=== PATIENT | male | born 1950 | race Asian ===

== ENCOUNTER 2019-02-09 16:18 | Emergency (ER) | payer MEDICARE, MEDICAID ==
[~2019-02-09] VITALS: Ht 172.7 cm; Wt 63.5 kg
[2019-02-09 16:53] LABS: Basophils # (auto) 0 uL; Eosinophils # (auto) 0.1 uL; Eosinophils % (auto) 1.7 % (0.0-7.0)
[2019-02-09 16:55] LABS: Basophils % (auto) 0.7 % (0.0-2.0); Hematocrit 45.3 % (41.0-53.0); Hemoglobin 15.4 g/dL (13.5-17.5); Lymphocytes # (auto) 1.6 uL; Lymphocytes % (auto) 30.5 % (10.0-50.0); Mean Corpuscular Volume 100.1 fL (80.0-100.0); Monocytes # (auto) 0.5 uL; Neutrophils % (auto) 58.1 % (37.0-80.0); Platelet Count (auto) 159 10^3/uL (140-450); Red Blood Cells 4.52 10^6/uL (4.5-5.90); White Blood Cell 5.1 10^3/uL (4.4-10.8)
[2019-02-09 17:09] LABS: BUN/Creatinine Ratio 22.1; Calcium 8.6 mg/dL (8.5-10.1); Potassium 3.6 mmol/L (3.5-5.1)
[2019-02-09 17:12] LABS: Bilirubin, Total 0.5 mg/dL (0.2-1.0)
[2019-02-09] MEDS ORDERED: SODIUM CHLORIDE 0.9% 500 ML IVB ONE (17:14)
[2019-02-09] MEDS ORDERED: FAMOTIDINE (10MG/ML) 2ML VL IV ONE (17:15)
[2019-02-09 17:32] LABS: Urine Bacteria FEW /hpf (None Seen); Urine Blood Negative /uL (Negative); Urine Specific Gravity 1.004 (1.001-1.035); Urine WBC <1 /hpf (0 - 3)
[2019-02-09 18:34] VITALS: BP 138/69
== END 2019-02-09 19:05 | disposition home or self-care (01) ==
LOC: ER 16:18
DX: R10.13 Epigastric pain (principal); R19.7 Diarrhea, unspecified
CPT/HCPCS: 36415; 74176; 80053; 81001; 83690; 85025; 94761; 96361; 96374; 99284; J3490; J7040; 93005